=== PATIENT | female | born 1935 | race Caucasian/White ===

== ENCOUNTER 2018-09-12 15:19 | Emergency (ER) | payer OTHER ==
[~2018-09-12] VITALS: Ht 149.9 cm; Wt 88.5 kg
[~2018-09-12 15:19] MED LIST: ASPIR 8181 MG PO; ATORVASTATIN CA40 MG PO; BETIMOL15 ML OPHTHALMIC; EYE VITAMIN PO; HYDROCHLOROTHIA25 M2 PO; NORVASC5 MG PO; PLAVIX 75 MG TA75 M1 PO; TIMOLOL GL0.5 %/5 M1 OPHTHALMIC; TOPROL XL50 MG PO; VITAMIN D1000 UNI1 PO
[2018-09-12 17:04] VITALS: BP 178/82
== END 2018-09-12 17:08 | disposition home or self-care (01) ==
LOC: M.ERS 15:19
DX: S83.8X2A Sprain of other specified parts of left knee, initial encounter (principal); I10 Essential (primary) hypertension; Z88.5 Allergy status to narcotic agent; Z90.49 Acquired absence of other specified parts of digestive tract; X50.1XXA Overexertion from prolonged static or awkward postures, initial encounter; Y92.89 Other specified places as the place of occurrence of the external cause; Y93.89 Activity, other specified; Y99.8 Other external cause status

== ENCOUNTER → 2019-12-18 | Outpatient (CLI) | payer OTHER | LOC: M.RAD 12:20 | PROVIDERS: ATTEND Nurse Practitioner | DX: R06.02 Shortness of breath (principal) ==